=== PATIENT | male | born 1955 | race Caucasian/White ===

== ENCOUNTER → 2017-11-22 | Outpatient (CLI) | payer MEDICARE ==
[~2017-11-22] MED LIST: ALB18R INH; ALPH200C2 PO; AMLO-1 PO; AMOX-559 PO; ASCO1CAP7 PO; ASP325 PO; ASPI-757 PO; BIMA2.5D5 OP; BIMOD OD; BIOT5000 PO; CEFU500T10 PO; CHOL200021 PO; CHOL200025 PO; CINN500C12 PO; CLO75 PO; DOXA4TAB PO; EZE10 PO; FLU44R INH; FLUT16SP19 NS; FLUT16SP20 NS; GARL10005 PO; HYDR-4309 PO; LACT1CAP64 PO; LEVO-85 PO; MAGN400C PO; MAGNE; MAX75 PO; METF-411 PO; METO-259 PO; MON10 PO; MONT10TA PO; NAP250 PO; NIA500 PO; OMEG-24 PO; OMEG-27 PO; OMEG-97 PO; PRAS50CA3 PO; PRED20TA6 PO; PREG50CA48 PO; RED600CA15 PO; SELE200T32 PO; SIMV-44 PO; TURM1CAP PO; TURMERIC PO; UBID100C48 PO; UBID150C4 PO; VITA-197 PO; VITA150T2 PO; [UNRECOGNIZED DRUG - CODE] INH; [UNRECOGNIZED DRUG - CODE] PO; [UNRECOGNIZED DRUG - CODE] PO; [UNRECOGNIZED DRUG - CODE] PO; [UNRECOGNIZED DRUG - CODE] PO; vitamin b1 PO
[2017-11-22 08:19] LABS: LDL CHOLESTEROL 82 mg/dl
== END ==
LOC: LAB 07:14
PROVIDERS: ATTEND Internal Medicine
DX: I25.10 Atherosclerotic heart disease of native coronary artery without angina pectoris (principal)
CPT/HCPCS: 36415; 82040; 82247; 82310; 82374; 82435; 82465; 82565; 82947; 83718; 84075; 84132; 84155; 84295; 84450; 84460; 84478; 84520

== ENCOUNTER → 2018-04-03 | Outpatient (CLI) | payer MEDICARE ==
[~2018-04-03] MED LIST changes: +IOPAMIDOL 76% 75 ML INFUS BTL 75 ML ONE; -METF-411 PO; +METF-450 PO
--- NOTE | 2018-04-03 13:10 | RADIOLOGY IMAGING REPORT ---
FACILITY: [facility] [place] PATIENT NAME: Norman Maldonado : 1955 MR: [id number] V: [id number] EXAM DATE: ORDERING PHYSICIAN: JOSE CLARKE TECHNOLOGIST: Location: [facility] [place] Patient: Norman Maldonado : 1955 Visit/Account:[id number] Date of Sevice: 04/03/2018 HEAD W W/O CONTRAST COMPARISONS: Head CT scan without contrast dated September 24, 2011 and previous brain MRI dated February 11, 2014 ADDITIONAL PERTINENT HISTORY: Headaches with dizziness TECHNIQUE: Multiple axial images were obtained from the skull base to the vertex before and after th e IV administration of contrast. One of the following dose optimization techniques was utilized in t performance of this exam: Automated exposure control; adjustment of the mA and/or kV according to the patient's size; or use of an iterative reconstruction technique. Specific details can be refere nced in the facility's radiology CT exam operational policy. CONTRAST: 75 ml of [id number] FINDINGS: Midline shift: Negative Ventricles: Negative Brain parenchyma: Negative Extra-axial spaces: Negative Pathologic enhancement: Negative Intracranial vasculature: Cavernous internal carotid artery calcifications. Otherwise negative Osseous structures: Negative Paranasal sinuses and mastoid air cells: Negative Surrounding soft tissues and orbits: Negative IMPRESSION: 1. Mild age-related changes as described above. 2. No evidence of acute intracranial pathology. Report Dictated By: Cayden Neves MD at 04/03/2018 1:00 PM Report E-Signed By: Cayden Neves MD at 04/03/2018 1:05 PM [id number]
== END ==
LOC: CT 04:46
PROVIDERS: ATTEND Family Medicine
DX: I67.2 Cerebral atherosclerosis (principal)
CPT/HCPCS: 70470; Q9967

== ENCOUNTER 2018-05-07 10:50 | Emergency (ER) | payer MEDICARE ==
[~2018-05-07 10:50] MED LIST changes: -HYDR-4309 PO; +HYDR-653 PO; -IOPAMIDOL 76% 75 ML INFUS BTL 75 ML ONE
--- NOTE | 2018-05-07 10:59 | ER Report ---
History and Physical Time Seen By MD: 10:58 Hx. of Stated Complaint: PT HAS EAR INFECTION, HAS BEEN ON DOXYCYLINE SINCE TUESDAY. WOKE UP THIS MORNING WITH COMPLETE HEARING LOSS IN HIS LEFT EAR. HPI/ROS CHIEF COMPLAINT: Unable to hear out of the left ear HISTORY OF PRESENT ILLNESS: 62-year-old male patient presents to emergency room with complaint of not being able hear out of his left ear. Patient states that he was recently diagnosed with otitis media, he states that he was started on doxycycline for that. He states that he been hearing well, until today. He states that today he is not been able to hear at all out of the year. He states he's not had any fevers or chills. He states the pain has been tolerable. Allergies: Coded Allergies: Sulfa (Sulfonamide Antibiotics) (Verified Allergy, Severe, ANAPHYLAXIS, 06/22/17) Sulfite Derivatives (Verified Allergy, Mild, 05/02/17) latex (Verified Allergy, Mild, 05/02/17) nutmeg oil (Myristica seed oil) (Verified Allergy, Mild, 05/02/17) Uncoded Allergies: EXTERIOR PAINT (Allergy, Mild, 07/02/08) NUTS (Allergy, Mild, 07/02/08) Home Meds Reported Medications Aspirin (ASPIRIN) 325 Mg Tablet, 325 MG PO QDAY, TAB 06/22/17 Inositol (INOSITOL) 500 Mg Tablet, 1000 MG PO QDAY 06/22/17 Selenomethionine (SELENIUM) 200 Mcg Tablet, 200 MCG PO QDAY 06/22/17 Cinnamon Bark (CINNAMON) 500 Mg Capsule, 1000 MG PO QDAY, CAPSULE 06/22/17 Vitamin B Complex & Vit C No.4 (SUPER B COMPLEX) 150 Mg Tablet, 150 MG PO QDAY 06/22/17 Magnesium Oxide (MAGNESIUM) 400 Mg Capsule, 400 MG PO QDAY, CAPSULE 06/22/17 [magne] No Conflict Check 06/22/17 Methylsulfonylmethane (MSM) 1,000 Mg Capsule, 1000 MG PO QDAY, CAPSULE 06/22/17 Vitamin E Mixed (VITAMIN E) 400 Unit Capsule, 400 UNIT PO QDAY, CAPSULE 06/22/17 Alpha Lipoic Acid (ALPHA LIPOIC ACID) 200 Mg Capsule, 200 MG PO QDAY, CAPSULE 06/22/17 Turmeric/Turmeric Ext/Pepr Ext (Turmeric Complex 500 mg Cap) 500 Mg-3 Mg Capsule, 1 TAB PO BID 06/22/17 [vitamin b1] No Conflict Check, 375 MG PO QDAY 06/22/17 Cholecalciferol (Vitamin D3) (VITAMIN D3) 2,000 Unit Capsule, 2000 UNIT PO QDAY, CAPSULE 06/22/17 Red Yeast Rice (RED YEAST RICE) 600 Mg Capsule, 600 MG PO BID, CAPSULE 06/22/17 Ascorbic Acid/Collagen Hydr (COLLAGEN PLUS VIT C CAPSULE) 1 Each Capsule, 1000 MG PO QDAY, CAPSULE 06/22/17 Garlic (GARLIC) 1,000 Mg Capsule, 1000 MG PO BID, CAPSULE 06/22/17 Biotin (Biotin) 5,000 Mcg Tab.rapdis, 1 TAB PO QDAY 06/22/17 Pumpkin Seed Oil/Saw [place] (SAW PALMETTO 160 MG SOFTGEL) 160 Mg Capsule, 160 MG PO QDAY, CAPSULE 06/22/17 Ubidecarenone (COQ-10) 100 Mg Capsule, 100 MG PO QDAY, CAPSULE 06/22/17 Lactobacillus Acidophilus (ACIDOPHILUS) 1 Each Capsule, 1 EACH PO QDAY, CAPSULE 06/22/17 [place]-3 Fatty Acids/Fish Oil (FISH OIL 1,200 MG SOFTGEL) 1 Each Capsule, 1 EACH PO QDAY, CAPSULE 06/22/17 Prasterone (Dhea) (DHEA) 50 Mg Capsule, 50 MG PO QDAY, CAPSULE 06/22/17 Bimatoprost (LUMIGAN) 2.5 Ml Drops, 2.5 ML OP QDAY 06/22/17 Fluticasone Prop 50 Mcg Ns (FLONASE 50 MCG NS) 16 Gm [place].susp, 2 SPRAYS NS QDAY, BOT 06/22/17 Fluticasone Prop 44 Mcg (FLOVENT HFA 44 MCG) 44 Mcg Inha, 44 MCG INH, INH 06/22/17 Metformin Hcl (METFORMIN HCL) 500 Mg Tablet, 0.5 TAB PO QDAY, TAB 06/22/17 Montelukast Sodium (SINGULAIR) 10 Mg Tablet, 1 TAB PO QDAY, TAB 06/22/17 Past Medical/Surgical History Patient has a past medical history of headaches, RI, angina, pneumonia, fibromyalgia, arthritis, vertebral fracture, tibia fracture in the past, back pain, diabetes, alcohol use. Patient has surgical history of surgery for glaucoma, detached retina, right inguinal hernia repair, stent placement 4. Patient has a family medical history of CAD, cancer, diabetes. Reviewed Nurses Notes: Yes Hx Smoking: Yes (2005) Smoking Status: Former Smoker Hx Alcohol Use: Yes (1 DAILY) Constitutional Vital Sign - Last 24 Hours 05/07/18 05/07/18 10:54 11:15 Temp 97.7 Pulse 59 Resp 16 B/P (MAP) 158/102 154/90 (111) Pulse Ox 92 Physical Exam General Appearance: The patient is alert, has no immediate need for airway protection and no current signs of toxicity. ENT: Right tympanic membrane is pearly-joiner, left tympanic membrane is unable to visualize secondary to impacted cerumen. Respiratory: Chest is non tender, lungs are clear to auscultation. Cardiac: regular rate and rhythm DIFFERENTIAL DIAGNOSIS: After history and physical exam differential diagnosis was considered for otitis media, ruptured eardrum, impacted cerumen. Medical Decision Making ED Course/Re-evaluation ED Course Patient was admitted to an exam room, history and physical were obtained. Differential diagnoses were considered. On examination lungs are clear, heart is regular, abdomen soft nontender. Patient does have what appears to be impacted cerumen in the left ear. With patient consent the left ear was irrigated. I was able to get out majority of the cerumen. On reevaluation the left tympanic membrane does look erythematous, bulging. To prevent any injury to the eardrum we will stop irrigating this point time. Patient states he is able to hear. I would like the patient go ahead and continue with his antibiotics. He is to follow-up with his primary care provider with any concerns in the next week. Patient verbalized understanding and agreement with plan. Decision to Disposition Date: May 07, 2018 Decision to Disposition Time: 11:20 Depart Departure Latest Vital Signs Vital Signs Date Time Temp Pulse Resp B/P (MAP) Pulse Ox O2 Delivery O2 Flow Rate FiO2 05/07/18 11:15 154/90 (111) 05/07/18 10:54 97.7 59 16 92 Impression: Primary Impression: Cerumen impaction Condition: Improved Disposition: HOME OR SELF-CARE Patient Instructions: Cerumen Impaction (ED) Additional Instructions: Follow up with Urgent Care in the next week after the ear infection has resolved to get the remainder o the ear wax out. Continue with the antibiotics. Return to the ER if condition worsens. Take Tylenol or Ibuprofen as needed for pain. Problem Qualifiers Primary Impression: Cerumen impaction Laterality: left Qualified Codes: H61.22 - Impacted cerumen, left ear MARCELA LIN SALES CLERK May 07, 2018 10:59
[2018-05-07 11:15] VITALS: BP 154/90
== END 2018-05-07 11:30 | disposition home or self-care (01) ==
LOC: ER 11:08
DX: H61.22 Impacted cerumen, left ear (principal)
CPT/HCPCS: 99282

== ENCOUNTER → 2018-05-18 | Outpatient (CLI) | payer MEDICARE ==
[2018-05-18 12:13] LABS: LDL CHOLESTEROL 73 mg/dl
== END ==
LOC: LAB 11:19
PROVIDERS: ATTEND Internal Medicine
DX: E78.00 Pure hypercholesterolemia, unspecified (principal); I25.10 Atherosclerotic heart disease of native coronary artery without angina pectoris
CPT/HCPCS: 36415; 82040; 82247; 82310; 82374; 82435; 82465; 82565; 82947; 83718; 84075; 84132; 84155; 84295; 84450; 84460; 84478; 84520

== ENCOUNTER → 2018-05-29 | Outpatient (CLI) | payer MEDICARE | LOC: US 02:42 | PROVIDERS: ATTEND Internal Medicine Cardiovascular Disease | DX: R29.898 Other symptoms and signs involving the musculoskeletal system (principal) | CPT/HCPCS: 93306 ==

== ENCOUNTER 2018-06-07 14:25 | Emergency (ER) | payer MEDICARE ==
[~2018-06-07 14:25] MED LIST changes: +BIMA2.5D5 OD; -BIMA2.5D5 OP; +CLOT30SO6 LEFT EAR
--- NOTE | 2018-06-07 14:41 | ER Report ---
History and Physical Time Seen By MD: 14:42 Hx. of Stated Complaint: Patient here for high blood pressure after doctor office visit this afternoon and shortness of breath that has been ongoing for a couple of months. Patient also complains of new onset pain in legs HPI/ROS CHIEF COMPLAINT: elevated blood pressure, weakness, shortness of breath HISTORY OF PRESENT ILLNESS: This is a 62 year old male. He has been having some elevated blood pressure today, and has been a little elevated at times in the past. He has been tried on the oral blood pressure medicine but he does not remember the name. It was ineffective so they eventually stopped it. He has had some shortness of breath it's ongoing over the last couple months that seems a little worse today and was worried about this and conjunction with the blood pr essure elevation, talk to his doctor who recommended he come to the ER for evaluation. He is also having some new onset pain in his legs and does have some ongoing weakness in his legs bilaterally as well. Denies any fevers or chills. No nausea or vomiting. He has normal bowel and bladder function. No numbness in the face arms or legs at this time. Denies any chest pain. No headache or vision changes. Allergies: Coded Allergies: Sulfa (Sulfonamide Antibiotics) (Verified Allergy, Severe, ANAPHYLAXIS, 06/07/18) Sulfite Derivatives (Verified Allergy, Mild, 06/07/18) latex (Verified Allergy, Mild, 06/07/18) nutmeg oil (Myristica seed oil) (Verified Allergy, Mild, 06/07/18) Uncoded Allergies: EXTERIOR PAINT (Allergy, Mild, 07/02/08) Home Meds Active Scripts Amlodipine Besylate (AMLODIPINE BESYLATE) 10 Mg Tablet, 1 TAB PO QDAY, #30 TAB 0 Refills Prov:ELVIRA VILLAFANA MD 06/07/18 Clotrimazole (CLOTRIMAZOLE) 30 Ml Solution, 5 DROP LEFT EAR BID for 14 Days, #1 BOT 1 Refill Prov:JAY PETERS JR, MD 06/07/18 Reported Medications Aspirin (ASPIRIN) 325 Mg Tablet, 325 MG PO QDAY, TAB 06/22/17 Inositol (INOSITOL) 500 Mg Tablet, 1000 MG PO QDAY 06/22/17 Selenomethionine (SELENIUM) 200 Mcg Tablet, 200 MCG PO QDAY 06/22/17 Cinnamon Bark (CINNAMON) 500 Mg Capsule, 1000 MG PO QDAY, CAPSULE 06/22/17 Vitamin B Complex & Vit C No.4 (SUPER B COMPLEX) 150 Mg Tablet, 150 MG PO QDAY 06/22/17 Magnesium Oxide (MAGNESIUM) 400 Mg Capsule, 400 MG PO QDAY, CAPSULE 06/22/17 Methylsulfonylmethane (MSM) 1,000 Mg Capsule, 1000 MG PO QDAY, CAPSULE 06/22/17 Vitamin E Mixed (VITAMIN E) 400 Unit Capsule, 400 UNIT PO QDAY, CAPSULE 06/22/17 Alpha Lipoic Acid (ALPHA LIPOIC ACID) 200 Mg Capsule, 200 MG PO QDAY, CAPSULE 06/22/17 Turmeric/Turmeric Ext/Pepr Ext (Turmeric Complex 500 mg Cap) 500 Mg-3 Mg Capsule, 1 TAB PO BID 06/22/17 [vitamin b1] No Conflict Check, 375 MG PO QDAY 06/22/17 Cholecalciferol (Vitamin D3) (VITAMIN D3) 2,000 Unit Capsule, 2000 UNIT PO QDAY, CAPSULE 06/22/17 Red Yeast Rice (RED YEAST RICE) 600 Mg Capsule, 600 MG PO BID, CAPSULE 06/22/17 Garlic (GARLIC) 1,000 Mg Capsule, 1000 MG PO BID, CAPSULE 06/22/17 Biotin (Biotin) 5,000 Mcg Tab.rapdis, 1 TAB PO QDAY 06/22/17 Pumpkin Seed Oil/Saw [place] (SAW PALMETTO 160 MG SOFTGEL) 160 Mg Capsule, 160 MG PO QDAY, CAPSULE 06/22/17 Ubidecarenone (COQ-10) 100 Mg Capsule, 100 MG PO QDAY, CAPSULE 06/22/17 [place]-3 Fatty Acids/Fish Oil (FISH OIL 1,200 MG SOFTGEL) 1 Each Capsule, 4 CAP PO QDAY, CAPSULE 06/22/17 Prasterone (Dhea) (DHEA) 50 Mg Capsule, 50 MG PO QDAY, CAPSULE 06/22/17 Bimatoprost (LUMIGAN) 2.5 Ml Drops, 1 DROP OD QDAY 06/22/17 Fluticasone Prop 50 Mcg Ns (FLONASE 50 MCG NS) 16 Gm [place].susp, 2 SPRAYS NS QDAY, BOT 06/22/17 Metformin Hcl (METFORMIN HCL) 500 Mg Tablet, 1 TAB PO QHS, TAB 06/22/17 Montelukast Sodium (SINGULAIR) 10 Mg Tablet, 1 TAB PO QDAY, TAB 06/22/17 Discontinued Reported Medications [magne] No Conflict Check 06/22/17 Ascorbic Acid/Collagen Hydr (COLLAGEN PLUS VIT C CAPSULE) 1 Each Capsule, 1000 MG PO QDAY, CAPSULE 06/22/17 Lactobacillus Acidophilus (ACIDOPHILUS) 1 Each Capsule, 1 EACH PO QDAY, CAPSULE 06/22/17 Fluticasone Prop 44 Mcg (FLOVENT HFA 44 MCG) 44 Mcg Inha, 44 MCG INH, INH 06/22/17 Reviewed Nurses Notes: Yes Hx Smoking: Yes (2005) Smoking Status: Former Smoker Hx Substance Use Disorder: No Hx Alcohol Use: Yes (1 DAILY) Constitutional Vital Sign - Last 24 Hours 06/07/18 06/07/18 06/07/18 06/07/18 14:31 14:31 14:45 15:00 Temp 98.0 Pulse 56 52 Resp 14 21 B/P (MAP) 148/100 148/100 (116) 157/96 (116) 160/107 (124) Pulse Ox 94 96 O2 Delivery Room Air 06/07/18 06/07/18 06/07/18 06/07/18 15:13 15:15 15:16 15:20 Pulse 54 58 68 Resp 16 B/P (MAP) 161/92 (115) 155/92 (113) 147/100 (116) 161/92 (115) 155/92 (113) 147/100 (116) Pulse Ox 91 06/07/18 06/07/18 06/07/18 06/07/18 15:30 15:45 16:03 16:15 Pulse 56 56 Resp 9 7 10 B/P (MAP) 156/86 (109) 173/92 (119) 162/102 (122) 172/101 (124) Pulse Ox 91 91 94 06/07/18 06/07/18 06/07/18 06/07/18 16:20 16:30 16:45 16:50 Pulse 55 52 Resp 19 18 B/P (MAP) 149/95 (113) 150/97 (114) Pulse Ox 94 95 06/07/18 06/07/18 06/07/18 17:00 17:15 17:20 Pulse ??? Resp 15 B/P (MAP) 159/95 (116) 163/97 (119) Pulse Ox 92 Intake and Output 06/07/18 06/07/18 06/08/18 14:58 22:58 06:58 Intake Total 1000 ml Balance 1000 ml Physical Exam General Appearance: The patient is alert. No acute distress. Eyes: Pupils are equal, round. Reactive to light. No pallor, injection or icterus. Extraocular movements are intact. No nystagmus. ENT: Mucous membranes are moist. Normal oral mucosa. Posterior oropharynx is normal. Neck: Supple and non tender. No lymphadenopathy. No thyromegaly. Respiratory: Breathing easily and unlabored. Lungs are clear to auscultation. Cardiovascular: Regular rate and rhythm. No murmurs, gallops or rubs. Normal capillary refill. No edema. Gastrointestinal: Abdomen is soft and non tender. Nondistended. Normal active bowel sounds. Neurological: Alert and oriented x3. Cranial nerves II through XII show no acute deficits on my exam. No focal neurologic deficits in the extremities. Skin: Warm and dry. No rashes. Musculoskeletal: Extremities are nontender. No tenderness in palpation of the cervical, thoracic and lumbar spine. DIFFERENTIAL DIAGNOSIS: After history and physical exam, differential diagnosis was considered for patient with elevated blood pressure with some shortness of breath and nonspecific generalized weakness in the legs. Medical Decision Making Data Points Result Diagram: 06/07/18 1453 06/07/18 1453 Laboratory Hematology Test 06/07/18 14:53 06/07/18 16:00 Red Blood Count 5.46 M/uL (4.00-5.60) Mean Corpuscular Volume 87.1 fL (80.0-96.0) Mean Corpuscular Hemoglobin 30.0 pg (26.0-33.0) Mean Corpuscular Hemoglobin Concent 34.5 g/dL (32.0-36.0) Red Cell Distribution Width 13.2 % (11.5-14.5) Mean Platelet Volume 8.4 fL (7.2-11.1) Neutrophils (%) (Auto) 57.6 % (39.4-72.5) Lymphocytes (%) (Auto) 32.7 % (17.6-49.6) Monocytes (%) (Auto) 6.8 % (4.1-12.4) Eosinophils (%) (Auto) 2.7 % (0.4-6.7) Basophils (%) (Auto) 0.2 % (0.3-1.4) Nucleated RBC Relative Count (auto) 0.0 /100WBC Neutrophils # (Auto) 3.2 K/uL (2.0-7.4) Lymphocytes # (Auto) 1.8 K/uL (1.3-3.6) Monocytes # (Auto) 0.4 K/uL (0.3-1.0) Eosinophils # (Auto) 0.2 K/uL (0.0-0.5) Basophils # (Auto) 0.0 K/uL (0.0-0.1) Nucleated RBC Absolute Count (auto) 0.00 K/uL Sodium Level 141 mmol/L (137-145) Potassium Level 4.3 mmol/L (3.5-5.0) Chloride Level 104 mmol/L (98-107) Carbon Dioxide Level 28 mmol/L (22-30) Blood Urea Nitrogen 14 mg/dl (9-21) Creatinine 1.10 mg/dl (0.66-1.25) Glomerular Filtration Rate Calc > 60.0 Random Glucose 103 mg/dl (75-110) Calcium Level 9.7 mg/dl (8.4-10.2) Total Bilirubin 0.7 mg/dl (0.2-1.3) Aspartate Amino Transf (AST/SGOT) 40 U/L (0-35) Alanine Aminotransferase (ALT/SGPT) 52 U/L (0-56) Alkaline Phosphatase 43 U/L (0-126) Troponin I 0.014 ng/ml Total Protein 7.6 g/dl (6.3-8.2) Albumin 4.5 g/dl (3.5-5.0) Urine Color Yellow Urine Clarity Clear Urine pH 7.0 pH (4.8-9.5) Urine Specific [place] 1.008 Urine Protein Negative mg/dL (NEGATIVE) Urine Glucose (UA) Negative mg/dL (NEGATIVE) Urine Ketones Negative mg/dL (NEGATIVE) Urine Blood Negative (NEGATIVE) Urine Nitrite Negative (NEGATIVE) Urine Bilirubin Negative (NEGATIVE) Urine Urobilinogen Negative mg/dL (0.2-1.9) Urine Leukocyte Esterase Negative (NEGATIVE) Urine RBC None /HPF (0-2/HPF) Urine WBC <1 /HPF (0-5/HPF) Urine Squamous Epithelial Cells None /LPF (</=FEW) Urine Bacteria Negative /HPF (NONE-FEW) Urine Mucus None /HPF (NONE-FEW) Chemistry Test 06/07/18 14:53 06/07/18 16:00 White Blood Count 5.6 k/uL (4.5-11.0) Red Blood Count 5.46 M/uL (4.00-5.60) Hemoglobin 16.4 g/dL (14.0-18.0) Hematocrit 47.6 % (42.0-52.0) Mean Corpuscular Volume 87.1 fL (80.0-96.0) Mean Corpuscular Hemoglobin 30.0 pg (26.0-33.0) Mean Corpuscular Hemoglobin Concent 34.5 g/dL (32.0-36.0) Red Cell Distribution Width 13.2 % (11.5-14.5) Platelet Count 200 K/uL (150-450) Mean Platelet Volume 8.4 fL (7.2-11.1) Neutrophils (%) (Auto) 57.6 % (39.4-72.5) Lymphocytes (%) (Auto) 32.7 % (17.6-49.6) Monocytes (%) (Auto) 6.8 % (4.1-12.4) Eosinophils (%) (Auto) 2.7 % (0.4-6.7) Basophils (%) (Auto) 0.2 % (0.3-1.4) Nucleated RBC Relative Count (auto) 0.0 /100WBC Neutrophils # (Auto) 3.2 K/uL (2.0-7.4) Lymphocytes # (Auto) 1.8 K/uL (1.3-3.6) Monocytes # (Auto) 0.4 K/uL (0.3-1.0) Eosinophils # (Auto) 0.2 K/uL (0.0-0.5) Basophils # (Auto) 0.0 K/uL (0.0-0.1) Nucleated RBC Absolute Count (auto) 0.00 K/uL Glomerular Filtration Rate Calc > 60.0 Calcium Level 9.7 mg/dl (8.4-10.2) Total Bilirubin 0.7 mg/dl (0.2-1.3) Aspartate Amino Transf (AST/SGOT) 40 U/L (0-35) Alanine Aminotransferase (ALT/SGPT) 52 U/L (0-56) Alkaline Phosphatase 43 U/L (0-126) Troponin I 0.014 ng/ml Total Protein 7.6 g/dl (6.3-8.2) Albumin 4.5 g/dl (3.5-5.0) Urine Color Yellow Urine Clarity Clear Urine pH 7.0 pH (4.8-9.5) Urine Specific [place] 1.008 Urine Protein Negative mg/dL (NEGATIVE) Urine Glucose (UA) Negative mg/dL (NEGATIVE) Urine Ketones Negative mg/dL (NEGATIVE) Urine Blood Negative (NEGATIVE) Urine Nitrite Negative (NEGATIVE) Urine Bilirubin Negative (NEGATIVE) Urine Urobilinogen Negative mg/dL (0.2-1.9) Urine Leukocyte Esterase Negative (NEGATIVE) Urine RBC None /HPF (0-2/HPF) Urine WBC <1 /HPF (0-5/HPF) Urine Squamous Epithelial Cells None /LPF (</=FEW) Urine Bacteria Negative /HPF (NONE-FEW) Urine Mucus None /HPF (NONE-FEW) Urinalysis Test 06/07/18 16:00 Urine Color Yellow Urine Clarity Clear Urine pH 7.0 pH (4.8-9.5) Urine Specific [place] 1.008 Urine Protein Negative mg/dL (NEGATIVE) Urine Glucose (UA) Negative mg/dL (NEGATIVE) Urine Ketones Negative mg/dL (NEGATIVE) Urine Blood Negative (NEGATIVE) Urine Nitrite Negative (NEGATIVE) Urine Bilirubin Negative (NEGATIVE) Urine Urobilinogen Negative mg/dL (0.2-1.9) Urine Leukocyte Esterase Negative (NEGATIVE) Urine RBC None /HPF (0-2/HPF) Urine WBC <1 /HPF (0-5/HPF) Urine Squamous Epithelial Cells None /LPF (</=FEW) Urine Bacteria Negative /HPF (NONE-FEW) Urine Mucus None /HPF (NONE-FEW) EKG/Imaging EKG Interpretation 12 lead EKG: Rhythm: Sinus bradycardia, rate 54 [place]: normal QRS: Q waves inferior ST segments: No ST elevation or depression noted Imaging Study: CT scan of the brain without intravenous contrast. Indication:Headache, dizziness, presyncope Comparison study: April 03, 2018 Technique: Multiple axial images were obtained through the brain without the use of intravenous contrast. One of the following dose optimization techniques was utilized in the performance of this exam: Automated exposure control; adjustment of the mA and/or kV according to the patient's size; or use of an iterative reconstruction technique. Specific details can be referenced in the facility's radiology CT exam operational policy. The examination demonstrates no evidence of acute intracranial hemorrhage. There is no evidence of extra-axial collection or hydrocephalus. There is no abnormal density identified within the brain parenchyma. There is no evidence of disruption of the peripheral joiner-white junction. The bony structures are unremarkable. IMPRESSION:Unremarkable CT scan of the brain without contrast. Report Dictated By: Gerry Mcgarry at 06/07/2018 3:25 PM EXAMINATION: Chest 2 Views HISTORY: Shortness of breath COMPARISON: 06/06/2017. FINDINGS: The lungs are clear. No focal consolidation or pleural fluid. No pneumothorax. Normal cardiomediastinal silhouette, with normal heart size and pulmonary vascularity. Visualized osseous structures are unremarkable. IMPRESSION: No evidence of acute cardiopulmonary disease. Report Dictated By: Jay Peters MD at 06/07/2018 3:14 PM ED Course/Re-evaluation Clinical Indication for ER IV: Hydration, IV Access ED Course Initial evaluation was done. I don't see any focal abnormalities. We went ahead and did a workup for elevated blood pressure and shortness of breath. Negative imaging and EKG as noted above. Because he is having symptoms did go ahead and give antihypertensive and shows Vasotec. Would like to abuse labetalol however with his bradycardia felt this was not a good idea. He did have slight decrease in blood pressure. We talked at length about following up with primary care for further evaluation and treatment. I did start him on amlodipine Decision to Disposition Date: Jun 07, 2018 Decision to Disposition Time: 17:18 Depart Departure Latest Vital Signs Vital Signs Date Time Temp Pulse Resp B/P (MAP) Pulse Ox O2 Delivery O2 Flow Rate FiO2 06/07/18 17:20 ??? 15 92 06/07/18 17:15 163/97 (119) 06/07/18 14:31 98.0 Room Air Impression: Primary Impression: Hypertension Condition: Improved Disposition: HOME OR SELF-CARE Referrals: JOSE MOSQUEDA DO (PCP) New Scripts Amlodipine Besylate (AMLODIPINE BESYLATE) 10 Mg Tablet 1 TAB PO QDAY, #30 TAB 0 Refills Prov: ELVIRA VILLAFANA MD 06/07/18 Patient Instructions: Hypertension (ED) Additional Instructions: Negative labs and imaging. EKG showed a normal heart rhythm. Blood pressure still elevated, would recommend starting a new medicine for this. Amlodipine 10mg, once a day in the morning. Follow-up with Dr. Mosqueda for further evaluation of blood pressure. Problem Qualifiers Primary Impression: Hypertension Hypertension type: unspecified Qualified Codes: I10 - Essential (primary) hypertension ELVIRA VILLAFANA MD Jun 07, 2018 14:42
[2018-06-07] MEDS ORDERED: NS(*) 0.9% 1000 ML BAG 1,000 ML IV ONE (14:44)
[2018-06-07 15:02] LABS: PLATELET COUNT, AUTOMATED 200 K/uL (150-450)
--- NOTE | 2018-06-07 15:21 | RADIOLOGY IMAGING REPORT ---
[place] [facility] [place]: Norman Maldonado : 1955 MR: [id number] V: [id number] EXAM DATE: ORDERING PHYSICIAN: ELVIRA VILLAFANA TECHNOLOGIST: [place] [facility] [place] Maldon[place] : 1955 Visit/Account:[id number] Date of Sevice: 06/07/2018 EXAMINATION: Chest 2 Views HISTORY: Shortness of breath COMPARISON: 06/06/2017. FINDINGS: The lungs are clear. No focal consolidation or pleural fluid. No pneumothorax. Normal cardiomedias tinal silhouette, with normal heart size and pulmonary vascularity. Visualized osseous structures ar e unremarkable. IMPRESSION: No evidence of acute cardiopulmonary disease. Report Dictated By: Jay Palencia MD at 06/07/2018 3:14 PM Report E-Signed By: Jay Palencia MD at 06/07/2018 3:15 PM WSN:[id number]
--- NOTE | 2018-06-07 15:33 | RADIOLOGY IMAGING REPORT ---
FACILITY: [facility] PATIENT NAME: Norman Maldonado : 1955 MR: [id number] V: [id number] EXAM DATE: ORDERING PHYSICIAN: ELVIRA VILLAFANA TECHNOLOGIST: Location: [facility] Patient: Norman Maldonado : 1955 Visit/Account:[id number] Date of Sevice: 06/07/2018 Study: CT scan of the brain without intravenous contrast. Indication:Headache, dizziness, presyncope Comparison study: April 03, 2018 Technique: Multiple axial images were obtained through the brain without the use of intravenous contr ast. One of the following dose optimization techniques was utilized in the performance of this exam: Autom ated exposure control; adjustment of the mA and/or kV according to the patient's size; or use of an i terative reconstruction technique. Specific details can be referenced in the facility's radiology C T exam operational policy. The examination demonstrates no evidence of acute intracranial hemorrhage. There is no evidence of ex tra-axial collection or hydrocephalus. There is no abnormal density identified within the brain parenchyma. There is no evidence of disruption of the peripheral joiner-white junction. The bony structures are unremarkable. IMPRESSION:Unremarkable CT scan of the brain without contrast. Report Dictated By: Gerry Mcgarry at 06/07/2018 3:25 PM Report E-Signed By: Gerry Mcgarry at 06/07/2018 3:29 PM WSN:[id number]
--- NOTE | 2018-06-07 16:03 | EKG ---
FACILITY: [facility] [place] PATIENT NAME: DENISA CUEVAS : [id number] MR: [id number] V: [id number] EXAM DATE: ORDERING PHYSICIAN: ELVIRA VILLAFANA TECHNOLOGIST: WOODY Test Reason : SOB Blood Pressure : / mmHG Vent. Rate : 054 BPM Atrial Rate : 054 BPM P-R Int : 160 ms QRS Dur : 096 ms QT Int : 440 ms P-R-T Axes : 026 -03 052 degrees QTc Int : 417 ms Sinus bradycardia Possible Inferior infarct , age undetermined Abnormal ECG When compared with ECG of 06-JUN-2017 09:58, No significant change was found Confirmed by Jake Newman ([id number]) on 06/07/2018 7:00:47 PM Referred By: LEDY Confirmed By:Jake Bailey
[2018-06-07] MEDS ORDERED: LABETALOL HCL 20 MG/4 ML SYR IVP ONE (16:10)
[2018-06-07] MEDS ORDERED: ENALAPRILAT 1.25 MG/ML VIAL IVP ONE (16:15)
[2018-06-07 17:15] VITALS: BP 163/97
[2018-06-07] MEDS ORDERED: AMLO-113 PO (17:18)
== END 2018-06-07 17:23 | disposition home or self-care (01) ==
LOC: ER 14:57
DX: I10 Essential (primary) hypertension (principal)
CPT/HCPCS: 70450; 71046; 81001; 84484; 85025; 93005; 96361; 96374; 99284; J3490; J7030; 82040; 82247; 82310; 82374; 82435; 82565; 82947; 84075; 84132; 84155; 84295; 84450; 84460; 84520

== ENCOUNTER → 2018-06-16 | Outpatient (CLI) | payer MEDICARE ==
[~2018-06-16] MED LIST changes: +AMLO-113 PO
== END ==
LOC: LAB 09:33
PROVIDERS: ATTEND Internal Medicine Cardiovascular Disease
DX: I25.10 Atherosclerotic heart disease of native coronary artery without angina pectoris (principal)
CPT/HCPCS: 36415; 83880

== ENCOUNTER → 2018-06-22 | Outpatient (CLI) | payer MEDICARE ==
[2018-06-22 12:59] LABS: PLATELET COUNT, AUTOMATED 192 K/uL (150-450)
== END ==
LOC: LAB 12:25
PROVIDERS: ATTEND Orthopaedic Surgery Hand Surgery
DX: M25.541 Pain in joints of right hand (principal); M25.441 Effusion, right hand
CPT/HCPCS: 36415; 84550; 85025; 85651; 86038; 86140; 86430

== ENCOUNTER → 2018-08-31 | Outpatient (CLI) | payer MEDICARE ==
[~2018-08-31] MED LIST changes: -AMLO-113 PO; +AMLO-127 PO
--- NOTE | 2018-08-31 17:26 | RADIOLOGY IMAGING REPORT ---
FACILITY: [facility] PATIENT NAME: Norman Maldonado : 1955 MR: [id number] V: [id number] EXAM DATE: ORDERING PHYSICIAN: PABLO RIOS TECHNOLOGIST: Location: [facility] Patient: Norman Maldonado : 1955 Visit/Account:[id number] Date of Sevice: 08/31/2018 CT CHEST W/O CONTRAST HISTORY: Shortness of breath. TECHNIQUE: CT chest without intravenous contrast. One of the following dose optimization techniques was utilized in the performance of this exam: Autom ated exposure control; adjustment of the mA and/or kV according to the patient's size; or use of an i terative reconstruction technique. Specific details can be referenced in the facility's radiology C T exam operational policy. CONTRAST: None. COMPARISON: None. FINDINGS: Heart/vessels: Moderate calcific atherosclerosis coronary arteries. Mediastinum: Negative. Lymph nodes: No bulky adenopathy. Lungs/pleura: Central airways normal caliber and grossly clear. No appreciable emphysema. No signifi cant bronchiectasis or gross bronchial wall thickening. Mild benign-appearing biapical pleural parenc hymal pulmonary scarring. Calcified left lower lobe pulmonary nodule consistent with benign granuloma . Several noncalcified solid pulmonary nodules, 4 mm right upper lobe (3/48) and 5 mm right lower lob e (3/68). Several other smaller noncalcified nodules bilateral. No pulmonary infiltrate or pleural fl uid. No pneumothorax. Visualized upper abdomen: Mild fatty pancreatic atrophy. Incompletely visualized simple fluid attenu ating lesion upper pole right kidney, most likely cyst. Bones/soft tissues: Mild disc degenerative changes thoracic spine. IMPRESSION: 1. No findings identified to explain patient's reported dyspnea. 2. Several incidental noncalcified solid bilateral pulmonary nodules, largest 5 mm. Please see Fleisc hner Society guidelines below for follow-up considerations. 3. Coronary atherosclerosis. FLEISCHNER SOCIETY FOLLOW-UP GUIDELINES FOR NEWLY DETECTED INCIDENTAL NODULES IN PERSONS 35 YEARS OF AGE OR OLDER. *These recommendations do NOT apply to lung cancer screening, patients with immunosuppression or cynthia ents with a known primary malignancy. MULTIPLE SOLID NODULES If nodule size is < 6 mm: * Low risk patient ? No routine follow-up. * High risk patient ? Optional CT at 12 months. LOW RISK PATIENT: Minimal or absent history of tobacco use and of other known risk factors. HIGH RISK PATIENT: Tobacco use, family history of lung cancer, upper pulmonary lobe location of nodul e, presence of emphysema, pulmonary fibrosis, older age. Brittany H, Darion DP, Desire COWAN, et al. Guidelines for Management of Incidental Pulmonary Nodules Dete cted on CT Images: From the Fleischner Society 2017. Radiology. [facility] Report Dictated By: Anurag Rizzo MD at 08/31/2018 5:15 PM Report E-Signed By: Anurag Rizzo MD at 08/31/2018 5:22 PM WSN:[id number]
== END ==
LOC: CT 00:44
PROVIDERS: ATTEND Internal Medicine
DX: I25.10 Atherosclerotic heart disease of native coronary artery without angina pectoris (principal); R91.8 Other nonspecific abnormal finding of lung field
CPT/HCPCS: 71250

== ENCOUNTER → 2018-09-12 | Outpatient (CLI) | payer MEDICARE | LOC: RESP 02:39 | PROVIDERS: ATTEND Internal Medicine | DX: R06.02 Shortness of breath (principal) | CPT/HCPCS: 94060; 94726; 94729 ==

== ENCOUNTER → 2018-12-25 | Outpatient (CLI) | payer MEDICARE ==
[2018-12-25 10:15] LABS: LDL CHOLESTEROL 84 mg/dl
== END ==
LOC: LAB 09:10
PROVIDERS: ATTEND Internal Medicine
DX: I25.10 Atherosclerotic heart disease of native coronary artery without angina pectoris (principal); E78.00 Pure hypercholesterolemia, unspecified; E11.9 Type 2 diabetes mellitus without complications
CPT/HCPCS: 36415; 82040; 82247; 82310; 82374; 82435; 82465; 82565; 82947; 83718; 84075; 84132; 84155; 84295; 84450; 84460; 84478; 84520

== ENCOUNTER → 2019-01-05 | Outpatient (CLI) | payer MEDICARE | LOC: RAD 00:57 | PROVIDERS: ATTEND Internal Medicine | DX: I25.10 Atherosclerotic heart disease of native coronary artery without angina pectoris (principal) | CPT/HCPCS: 93306 ==

== ENCOUNTER → 2019-01-08 | Outpatient (CLI) | payer MEDICARE ==
--- NOTE | 2019-01-10 21:09 | RT HOLTER TEST ---
FACILITY: [facility] PATIENT NAME: DENISA CUEVAS : [id number] MR: [id number] V: [id number] EXAM DATE: ORDERING PHYSICIAN: OWEN AMADOR TECHNOLOGIST: DELVIS Bauer-danelle date: 2019-01-08 09:27:00 Duration: 47:59:00 Test Indications: ARRHYTHMIA Medications: 651995 QRS complexes 306 Ventricular ectopics which represent <1 % of total QRS comp. 287 Supraventricular ectopics which represent <1 % of total QRS comp. * Paced QRS complexes which represent % of total QRS comp. VENTRICULAR ECTOPY 300 Isolated 0 Bigeminal Cycles 3 Couplets 0 Runs 0 Beats in Runs * Beats LONGEST at * BPM at :: -- * Beats FASTEST at * BPM at :: -- SUPRAVENTRICULAR ECTOPY 59 Isolated 13 Couplets 28 Runs 202 Beats in Runs 21 Beats LONGEST at 120 BPM at 01:13:59 2019-01-10 3 Beats FASTEST at 153 BPM at 01:36:10 2019-01-10 HEART RATES 39 MIN at 03:38:34 2019-01-09 69 AVG 142 MAX at 01:13:59 2019-01-10 LONGEST RR 1.960 secs at 04:06:07 2019-01-10 S-T LEVELS Channel 1 -12.800 mm MIN at 09:27:00 2019-01-08 -12.800 mm MAX at 09:27:00 2019-01-08 Channel 2 -12.800 mm MIN at 09:27:00 2019-01-08 -12.800 mm MAX at 09:27:00 2019-01-08 Channel 3 -12.800 mm MIN at 09:27:00 2019-01-08 -12.800 mm MAX at 09:27:00 2019-01-08 The patient had 9 reported symptoms. He was in a sinus rhythm for all of them with a heart rate ran ging form 69 to 124 beats per minute (bpm). He did have runs of atrial fibrillation with heart rates from 100-121 bpm. During the most bradycard ic times, there appeared to be a few, asymptomatic, dropped QRS complexes after a premature early P wave. Rare supraventricular ectopy an d ventricular ectopy. Confirmed by JONATHAN MEADE ([id number]) on 01/10/2019 9:07:04 PM Referred By: Overread By: JONATHAN MEADE
== END ==
LOC: RESP 07:07
PROVIDERS: ATTEND Internal Medicine
DX: I49.9 Cardiac arrhythmia, unspecified (principal)
CPT/HCPCS: 93225; 93226

== ENCOUNTER → 2019-01-26 | Outpatient (CLI) | payer MEDICARE ==
[2019-01-26 11:16] LABS: INR 1.02
== END ==
LOC: LAB 09:54
PROVIDERS: ATTEND Internal Medicine
DX: I25.10 Atherosclerotic heart disease of native coronary artery without angina pectoris (principal); E78.00 Pure hypercholesterolemia, unspecified
CPT/HCPCS: 36415; 85610

== ENCOUNTER → 2019-01-29 | Outpatient (CLI) | payer MEDICARE ==
[2019-01-29 09:27] LABS: INR 1.09
== END ==
LOC: LAB 08:32
PROVIDERS: ATTEND Internal Medicine
DX: Z51.81 Encounter for therapeutic drug level monitoring (principal); Z79.01 Long term (current) use of anticoagulants; I48.0 Paroxysmal atrial fibrillation
CPT/HCPCS: 36415; 85610

== ENCOUNTER → 2019-02-01 | Outpatient (CLI) | payer MEDICARE ==
[2019-02-01 10:18] LABS: INR 1.66
== END ==
LOC: LAB 09:23
PROVIDERS: ATTEND Internal Medicine
DX: Z51.81 Encounter for therapeutic drug level monitoring (principal); Z79.01 Long term (current) use of anticoagulants; I48.0 Paroxysmal atrial fibrillation
CPT/HCPCS: 36415; 85610

== ENCOUNTER → 2019-02-05 | Outpatient (CLI) | payer MEDICARE ==
[2019-02-05 15:17] LABS: INR 1.75
== END ==
LOC: LAB 13:54
PROVIDERS: ATTEND Internal Medicine
DX: Z51.81 Encounter for therapeutic drug level monitoring (principal); I48.0 Paroxysmal atrial fibrillation; E78.00 Pure hypercholesterolemia, unspecified; I25.10 Atherosclerotic heart disease of native coronary artery without angina pectoris; Z79.01 Long term (current) use of anticoagulants
CPT/HCPCS: 36415; 85610